=== PATIENT | female | born 1965 | race Caucasian/White ===

== ENCOUNTER 2016-11-21 10:27 | Emergency (ER) | payer BC ==
[~2016-11-21] VITALS: Ht 177.8 cm; Wt 107.8 kg
[~2016-11-21 10:27] MED LIST: ANTI-DIARRHEA2 MG PO; CITALOPRAM HBR40 MG PO; ECOTRIN325 MG PO; HYDROCHLOROTHIA25 MG PO; IRON160 M1 PO; OMEPRAZOLE40 M1 PO; SYNTHROID125 MCG PO; XANAX0.25 MG PO
[2016-11-21 11:43] LABS: ADD MIUA? YES; BILIRUBIN NEGATIVE; BLOOD SMALL; COLOR YELLOW ((YELLOW)); GLUCOSE (STRIP) NEGATIVE; KETONES NEGATIVE; LEUKOCYTES NEGATIVE; NITRITE NEGATIVE; PROTEIN (STRIP) NEGATIVE; SPECIFIC GRAVITY 1.016 (1.000-1.030); UROBILINOGEN 0.2 MG/DL (0.2-1.0)
[2016-11-21 11:51] LABS: BACTERIA NONE SEEN /HPF; EPITHELIAL CELLS 2+ /HPF; MUCUS TRACE /LPF; RED BLOOD CELLS 0-5 /HPF (0-5); WHITE BLOOD CELLS 0-5 /HPF (0-5)
[2016-11-21 11:53] LABS: HEMATOCRIT 41.9 % (36.0-46.0); MCH 30.1 PG (29.0-34.0); MCHC 33.9 G/DL (30.0-36.0); MCV 88.8 FL (83-99); MEAN PLAT.VOLUME 9.6 uM^3 (9.5-12.4); PLATELET COUNT 247 K/uL (156-360); RBC DIS.WIDTH-CV 12.4 % (11.8-14.6); RBC DIS.WIDTH-SD 40.8 % (39-53); RED BLOOD COUNT 4.72 M/uL (3.80-5.20)
[2016-11-21 12:04] LABS: CHLORIDE 104 mEq/L (99-109); POTASSIUM 3.9 mEq/L (3.7-5.4); SODIUM 140 mEq/L (136-147)
[2016-11-21 12:05] LABS: GLUCOSE 101 mg/dL (70-99)
[2016-11-21 12:06] LABS: D-DIMER ELISA 0.34 mg/L FEU (< 0.57); PROTHROMBIN TIME 10.3 (9.2-11.2); PTT 27.3 (25-32)
[2016-11-21 12:07] LABS: ANION GAP 12 MEQ/L (2-14)
[2016-11-21 12:09] LABS: GFR ESTIMATE (CALCULATED) > 59 mL/min/
[2016-11-21 12:10] LABS: UREA NITROGEN (BUN) 16 mg/dL (9-23)
[2016-11-21 12:14] LABS: TROP-I INTERPRETATION NEGATIVE; TROPONIN-I < 0.01 ng/mL (0.0-0.30)
[2016-11-21 13:46] LABS: TROP-I INTERPRETATION NEGATIVE; TROPONIN-I < 0.01 ng/mL (0.0-0.30)
[2016-11-21] MEDS ORDERED: LEVO-T150 MCG PO (14:21)
[2016-11-21] MEDS ORDERED: LIPITOR20 MG PO (14:26)
[2016-11-21 14:31] VITALS: BP 115/58
== END 2016-11-21 14:30 | disposition home or self-care (01) ==
LOC: EME 10:27
PROVIDERS: Emergency Medicine; Nurse Practitioner Family
DX: R07.9 Chest pain, unspecified (principal); R20.2 Paresthesia of skin; E03.9 Hypothyroidism, unspecified; F17.200 Nicotine dependence, unspecified, uncomplicated
CPT/HCPCS: 70450; 71020; 80048; 81003; 84484; 85027; 85379; 85610; 85730; 93005; 99281; 99285

== ENCOUNTER 2017-03-09 22:51 | Day surgery (SDC) | payer BC ==
[~2017-03-09] VITALS: Ht 177.8 cm; Wt 117.3 kg
[~2017-03-09 22:51] MED LIST changes: +LEVO-T150 MCG PO; +LIPITOR20 MG PO
[2017-03-10 00:28] LABS: HEMATOCRIT 38.4 % (36.0-46.0); MCH 30.5 PG (29.0-34.0); MCHC 33.6 G/DL (30.0-36.0); MCV 90.8 FL (83-99); MEAN PLAT.VOLUME 9.3 uM^3 (9.5-12.4); PLATELET COUNT 250 K/uL (156-360); RBC DIS.WIDTH-CV 13.4 % (11.8-14.6); RBC DIS.WIDTH-SD 44.5 % (39-53); RED BLOOD COUNT 4.23 M/uL (3.80-5.20); WHITE BLOOD COUNT 17.5 K/uL (4.1-10.2)
[2017-03-10 00:38] LABS: CHLORIDE 103 mEq/L (99-109); SODIUM 138 mEq/L (136-147)
[2017-03-10 00:40] LABS: GLUCOSE 111 mg/dL (70-99)
[2017-03-10 00:42] LABS: ANION GAP 10 MEQ/L (2-14); TOTAL BILIRUBIN 0.5 mg/dL (0.0-1.0)
[2017-03-10 00:44] LABS: ALKALINE PHOSPHATASE 98 IU/L (3-129); GFR ESTIMATE (CALCULATED) > 59 mL/min/
[2017-03-10 00:45] LABS: UREA NITROGEN (BUN) 10 mg/dL (9-23)
[2017-03-10 05:00] VITALS: BP 119/53
[2017-03-10 07:30] VITALS: BP 108/59
[2017-03-10] MEDS ORDERED: MORPHINE SULFAT15 MG PO (09:23)
[2017-03-10] MEDS ORDERED: MOTRIN800 MG PO (12:48)
[2017-03-10] MEDS ORDERED: ZOFRAN4 MG PO (12:49)
[2017-03-10] MEDS ORDERED: COLACE100 MG PO (12:50)
[2017-03-10 16:02] VITALS: BP 98/56
[2017-03-10 16:33] VITALS: BP 100/45
[2017-03-10 20:29] VITALS: BP 125/78
[2017-03-10 23:59] VITALS: BP 117/58
[2017-03-11 08:30] VITALS: BP 93/53
[2017-03-11 10:04] VITALS: BP 110/55
[2017-03-11] MEDS ORDERED: ONDANSETRON4 MG/2 ML IV (11:12)
[2017-03-11] MEDS ORDERED: NICOTINE PATCH1 EAC2 TD (11:16)
[2017-03-11] MEDS ORDERED: ZOFRAN4 MG PO (11:21)
== END 2017-03-11 13:05 | disposition home or self-care (01) ==
LOC: RME 22:51 → EME 22:51 → SDC 03-10 03:06 → RME 03-10 03:06 → 2SOUTH 03-10 03:54 → 3EAST 03-10 03:54 → 2SOUTH 03-10 03:54 → 3EAST 03-10 04:48
PROVIDERS: Nurse Practitioner Family
PROC: 0DTJ4ZZ Resection of Appendix, Percutaneous Endoscopic Approach (ICD-10-PCS; principal; 2017-03-10)
DX: K35.80 Unspecified acute appendicitis (principal); E78.5 Hyperlipidemia, unspecified; F41.9 Anxiety disorder, unspecified; E03.9 Hypothyroidism, unspecified; F17.210 Nicotine dependence, cigarettes, uncomplicated; Z83.3 Family history of diabetes mellitus
CPT/HCPCS: 71020; 74177; 80053; 81003; 83605; 85027; 87040; 87076; 87185; 87801; 88304; 94660; 94799; 99281; 99285; G0378; J0131; J0330; J1100; J1650; J1885; J2250; J2270; J2405; J2710; J3010; J7040; J7120

== ENCOUNTER 2017-03-16 21:22 | Emergency (ER) | payer BC ==
[~2017-03-16] VITALS: Ht 177.8 cm; Wt 110.0 kg
[~2017-03-16 21:22] MED LIST changes: +COLACE100 MG PO; +MORPHINE SULFAT15 MG PO; +MOTRIN800 MG PO; +NICOTINE PATCH1 EAC2 TD; +ONDANSETRON4 MG/2 ML IV; +ZOFRAN4 MG PO
[2017-03-16 22:52] LABS: HEMATOCRIT 38.9 % (36.0-46.0); MCH 30.4 PG (29.0-34.0); MCHC 33.9 G/DL (30.0-36.0); MCV 89.6 FL (83-99); MEAN PLAT.VOLUME 9.6 uM^3 (9.5-12.4); PLATELET COUNT 267 K/uL (156-360); RBC DIS.WIDTH-CV 13.2 % (11.8-14.6); RED BLOOD COUNT 4.34 M/uL (3.80-5.20); WHITE BLOOD COUNT 10.7 K/uL (4.1-10.2)
[2017-03-16 22:55] LABS: ADD MIUA? YES; BILIRUBIN NEGATIVE; BLOOD MODERATE; COLOR STRAW ((YELLOW)); GLUCOSE (STRIP) NEGATIVE; KETONES NEGATIVE; LEUKOCYTES SMALL; NITRITE NEGATIVE; PROTEIN (STRIP) NEGATIVE; SPECIFIC GRAVITY 1.005 (1.000-1.030); UROBILINOGEN 0.2 MG/DL (0.2-1.0)
[2017-03-16 23:00] LABS: BACTERIA 1+ /HPF; EPITHELIAL CELLS 1+ /HPF; MUCUS NONE SEEN /LPF; UCUL ADDED? NO
[2017-03-16 23:09] LABS: CHLORIDE 105 mEq/L (99-109); SODIUM 141 mEq/L (136-147)
[2017-03-16 23:12] LABS: GLUCOSE 94 mg/dL (70-99)
[2017-03-16 23:13] LABS: ANION GAP 12 MEQ/L (2-14)
[2017-03-16 23:15] LABS: ALKALINE PHOSPHATASE 95 IU/L (3-129); GFR ESTIMATE (CALCULATED) > 59 mL/min/
[2017-03-16 23:16] LABS: UREA NITROGEN (BUN) 13 mg/dL (9-23)
[2017-03-16 23:18] LABS: TOTAL BILIRUBIN 0.3 mg/dL (0.0-1.0)
[2017-03-16 23:19] LABS: LIPASE 23 U/L (1.0-51.0)
[2017-03-16 23:27] LABS: QUANTITATIVE HCG < 4.0 MIU/ML
[2017-03-17] MEDS ORDERED: VANTIN100 MG PO (01:20)
[2017-03-17] MEDS ORDERED: PYRIDIUM100 MG PO (01:20)
[2017-03-17 02:17] VITALS: BP 137/71
== END 2017-03-17 02:16 | disposition home or self-care (01) ==
LOC: EME 21:22
PROVIDERS: Physician Assistant Medical
DX: N30.01 Acute cystitis with hematuria (principal); R05 Cough; R11.0 Nausea; Z98.890 Other specified postprocedural states; Z90.710 Acquired absence of both cervix and uterus; Z90.49 Acquired absence of other specified parts of digestive tract; E03.9 Hypothyroidism, unspecified; E78.5 Hyperlipidemia, unspecified; F17.200 Nicotine dependence, unspecified, uncomplicated
CPT/HCPCS: 74177; 80053; 81003; 83605; 83690; 84702; 85027; 87040; 99281; 99284; J0696; J2405; J7030; J7050

== ENCOUNTER 2017-06-03 11:20 | Day surgery (SDC) | payer BC ==
[~2017-06-03] VITALS: Ht 177.8 cm; Wt 125.7 kg
[~2017-06-03 11:20] MED LIST changes: +CELEXA20 MG PO; -CITALOPRAM HBR40 MG PO; +COLESTID1 GM PO; +FLEXERIL10 MG PO; +IMODIUM A-D2 M2 PO; +MOBIC15 MG PO; +PYRIDIUM100 MG PO; +VANTIN100 MG PO; +VITAMIN D32000 UNI1 PO
[2017-06-03 12:03] VITALS: BP 122/61
[2017-06-03 19:00] VITALS: BP 116/57
[2017-06-04 00:38] VITALS: BP 120/59
[2017-06-04 04:45] VITALS: BP 106/54
[2017-06-04 07:06] VITALS: BP 126/63
[2017-06-04 11:37] VITALS: BP 92/46
[2017-06-04 15:20] VITALS: BP 109/54
== END 2017-06-04 15:25 | disposition home or self-care (01) ==
LOC: SDC 11:20 → 2SOUTH 16:47 → 2EAST 16:47 → 2SOUTH 16:47 → ENRESERV 17:21 → 2EAST 18:15
DX: S93.492A Sprain of other ligament of left ankle, initial encounter (principal); M76.72 Peroneal tendinitis, left leg; G57.52 Tarsal tunnel syndrome, left lower limb; M65.9 Synovitis and tenosynovitis, unspecified; G89.18 Other acute postprocedural pain; F17.200 Nicotine dependence, unspecified, uncomplicated; E03.9 Hypothyroidism, unspecified; F41.9 Anxiety disorder, unspecified; K21.9 Gastro-esophageal reflux disease without esophagitis; K58.0 Irritable bowel syndrome with diarrhea
CPT/HCPCS: 73610; 76000; 88304; 94660; C1713; G0378; J0690; J1100; J1650; J1885; J2250; J2405; J2795; J3010; J7120; Q0175; S0020

== ENCOUNTER 2018-01-24 20:17 | Observation (INO) | payer BC ==
[~2018-01-24] VITALS: Ht 177.8 cm; Wt 110.7 kg
[~2018-01-24 20:17] MED LIST changes: +MORPHINE SULFAT15 M1 PO; +NICODERM CQ1 EAC2 TD
[2018-01-24 20:52] LABS: HEMATOCRIT 42.9 % (36.0-46.0); HEMOGLOBIN 14.9 G/DL (11.9-15.5); MCH 30.8 PG (29.0-34.0); MCHC 34.7 G/DL (30.0-36.0); MCV 88.8 FL (83-99); PLATELET COUNT 212 K/uL (156-360); RBC DIS.WIDTH-CV 12.6 % (11.8-14.6); RBC DIS.WIDTH-SD 41.3 % (39-53); RED BLOOD COUNT 4.83 M/uL (3.80-5.20); WHITE BLOOD COUNT 9.1 K/uL (4.1-10.2)
[2018-01-24 21:01] LABS: CHLORIDE 106 mEq/L (99-109); POTASSIUM 3.9 mEq/L (3.7-5.4); SODIUM 140 mEq/L (136-147)
[2018-01-24 21:03] LABS: GLUCOSE 87 mg/dL (70-99)
[2018-01-24 21:06] LABS: CREATININE 0.8 mg/dL (0.6-1.3); GFR ESTIMATE (CALCULATED) > 59 mL/min/
[2018-01-24 21:07] LABS: UREA NITROGEN (BUN) 10 mg/dL (9-23)
[2018-01-24 21:13] LABS: TROP-I INTERPRETATION NEGATIVE; TROPONIN-I < 0.01 ng/mL (0.0-0.30)
[2018-01-24] MEDS ORDERED: MORPHINE SULFAT15 M1 PO (22:01)
[2018-01-24] MEDS ORDERED: VITAMIN D31000 UNIT PO (22:02)
[2018-01-24 23:58] VITALS: BP 112/52
[2018-01-25 04:06] VITALS: BP 82/46
[2018-01-25 04:54] LABS: TROP-I INTERPRETATION NEGATIVE; TROPONIN-I < 0.01 ng/mL (0.0-0.30)
[2018-01-25 08:00] VITALS: BP 103/51
[2018-01-25 11:42] VITALS: BP 104/49
[2018-01-25 12:35] LABS: TROP-I INTERPRETATION NEGATIVE; TROPONIN-I < 0.01 ng/mL (0.0-0.30)
[2018-01-25 14:03] LABS: ALBUMIN 4.2 G/DL (3.2-4.8); DIRECT BILIRUBIN 0.1 mg/dL (0.0-0.3); TOTAL BILIRUBIN 0.3 MG/DL (0.0-1.0)
[2018-01-25 14:09] LABS: ALKALINE PHOSPHATASE 80 IU/L (3-129); ALT (GPT) 69 IU/L (3-49); AST (GOT) 41 IU/L (2-34); TOTAL PROTEIN 6.6 G/DL (6.4-8.3)
[2018-01-26 10:19] LABS: HEMOGLOBIN A1c (GLYCOHEMOGLOB) 5.9 % (Below 5.7)
== END 2018-01-25 17:30 | disposition home or self-care (01) ==
LOC: EME 20:17 → 4SOUTH 21:51 → EDOF 21:51 → ENRESERV 21:53 → 4SOUTH 23:48
PROVIDERS: Hospitalist
DX: R07.89 Other chest pain (principal); E66.01 Morbid (severe) obesity due to excess calories; Z68.35 Body mass index [BMI] 35.0-35.9, adult; G47.30 Sleep apnea, unspecified; E11.9 Type 2 diabetes mellitus without complications; F41.9 Anxiety disorder, unspecified; F32.9 Major depressive disorder, single episode, unspecified; G89.4 Chronic pain syndrome; Z88.5 Allergy status to narcotic agent; Z79.82 Long term (current) use of aspirin
CPT/HCPCS: 71046; 80048; 80076; 83036; 84484; 85027; 93005; 94660; 99281; 99283; G0378; J1650

== ENCOUNTER 2018-01-27 11:32 | Day surgery (SDC) | payer BC ==
[~2018-01-27] VITALS: Ht 154.9 cm; Wt 111.1 kg
[~2018-01-27 11:32] MED LIST changes: +VITAMIN D31000 UNIT PO
[2018-01-27 12:34] VITALS: BP 142/65
[2018-01-27 12:46] VITALS: BP 142/65
[2018-01-27 19:17] VITALS: BP 132/61
[2018-01-27 23:16] VITALS: BP 102/53
[2018-01-28 03:40] VITALS: BP 106/56
[2018-01-28 08:58] VITALS: BP 110/72
[2018-01-28 18:19] VITALS: BP 123/60
== END 2018-01-28 22:09 | disposition home or self-care (01) ==
LOC: SDC → 2SOUTH 12:55 → 2EAST 12:55 → 2SOUTH 12:55 → SDC 14:27 → ENRESERV 16:09 → 2EAST 16:53
DX: M76.72 Peroneal tendinitis, left leg (principal); M72.2 Plantar fascial fibromatosis; E66.9 Obesity, unspecified; F41.9 Anxiety disorder, unspecified; F32.9 Major depressive disorder, single episode, unspecified; F17.210 Nicotine dependence, cigarettes, uncomplicated; Z88.6 Allergy status to analgesic agent; Z88.5 Allergy status to narcotic agent; Z68.34 Body mass index [BMI] 34.0-34.9, adult
CPT/HCPCS: 94660; G0378; G8978 GP CI; G8979 GP CH; J0690; J1100; J1885; J2250; J2270; J2405; J2795; J3010; J3475; Q0175; S0020